=== PATIENT | female | born 1995 | race Caucasian/White ===

== ENCOUNTER 2024-06-15 18:20 | Emergency (ER) | payer OTHER, SELFPAY ==
[2024-06-15 18:33] VITALS: BP 130/90; PULSE 93; RESP 16; TEMP 36.3; O2SAT 100
--- NOTE | 2024-06-15 19:00 | ED.GENADULT ---
HPI - General Adult General Chief complaint: Dental/Oral Stated complaint: Jaw Injury Time Seen by Provider: 06/15/24 18:46 Source: patient and RN notes reviewed Mode of arrival: ambulatory Limitations: no limitations History of Present Illness HPI narrative: Patient presents today complaining of pain to her bilateral TM joints. She was holding her dog at the vet's office a few hours prior to arrival, when the dog bucked, striking her under the chin with its body, causing immediate pain to her jaw. States pain is worse when she tries to close her jaw, less pain when speaking or opening the jaw. She currently rates her pain 6/10 and has tried no medication for pain prior to arrival. Teeth and tongue are uninjured. She wants to make sure her jaw is not broken. Related Data Allergies Allergy/AdvReac Type Severity Reaction Status Date / Time Sulfa (Sulfonamide Allergy Mild Rash Verified 06/15/24 19:05 Antibiotics) Review of Systems Review of Systems: CONSTITUTIONAL: Denies body aches, fever, chills, or sweats. EYES: Denies visual changes, redness, or discharge. ENT: Denies rhinorrhea, congestion, sore throat, or otalgia.+ jaw pain CARDIOVASCULAR: Denies chest pain, palpitations, or edema. RESPIRATORY: Denies cough or dyspnea. GASTROINTESTINAL: Denies abdominal pain, nausea, vomiting, or diarrhea. GENITOURINARY: Denies dysuria or hematuria. SKIN: Denies rash, itching, or wounds. MUSCULOSKELETAL: Denies back pain, joint pain, or myalgia. NEUROLOGIC: Denies headache, numbness, tingling, or weakness. PSYCH: Denies depression or anxiety. PMFSH Family History Family History Mother Asthma Social History Social History Smoking status: Never smoker Alcohol intake: never Comments At time of signature, I have reviewed and agree with nursing past medical, surgical, social and family history unless otherwise noted. Please see nursing chart for further information. There is no relevant family history pertinent to the presenting complaint Exam Narrative: GENERAL: Well-appearing, well-nourished, tearful HEAD: Normocephalic, atraumatic. EYES: EOMI. PERRL. No redness or drainage. Conjunctivae normal. ENT: Mucous membranes pink and moist. Nares clear. No rhinorrhea. No swelling, erythema, or ecchymosis to the face. Point tenderness to the bilateral temporomandibular joints, R>L. Mild discomfort with opening of the mouth. Tongue, teeth, lips unaffected. Pain to the TM joints with closing of the mouth and clenching. Patient has no other tenderness of the maxilla or mandible. Patient speaks smoothly without difficulty. NECK: Normal AROM. CHEST: No respiratory distress. EXTREMITIES: Normal range of motion. No edema. SKIN: Warm, dry, no rash. Capillary refill normal. Normal skin turgor. NEURO: No focal deficits. Alert and oriented x3. Gait steady. PSYCH: Normal affect. No signs of depression or anxiety. Course Course Level of Care: Express Care Visit Vital Signs Vital signs: Vital Signs Temperature 97.4 F L 06/15/24 18:33 Pulse Rate 93 06/15/24 18:33 Respiratory Rate 16 06/15/24 18:33 Blood Pressure 130/90 06/15/24 18:33 Pulse Oximetry 100 06/15/24 18:33 Temperature 97.4 F L 06/15/24 18:33 Pulse Rate 93 06/15/24 18:33 Respiratory Rate 16 06/15/24 18:33 Blood Pressure 130/90 06/15/24 18:33 Pulse Oximetry 100 06/15/24 18:33 Reviewed Medical Decision Making MDM Narrative Medical decision making narrative: At this time, I do not feel that patient's jaw is fractured given her exam findings and history. She has been given IM injections dexamethasone and ketorolac for symptom control. Prescription for Flexeril sent pharmacy. States she will seek further evaluation tomorrow in the ER if symptoms have not improved with these interventions. Anti
[2024-06-15] MEDS: KETOROLAC (*BKC) 60 MG/2 ML VIAL IM (19:06)
[2024-06-15] MEDS: dexAMETHasone SOD PHOS INJ 10 MG/ML 1 ML VIAL IM (19:07)
== END 2024-06-15 19:25 | disposition home or self-care (01) ==
PROVIDERS: Emergency Provider Nurse Practitioner
DX: S09.11XA Strain of muscle and tendon of head, initial encounter (principal); W54.8XXA Other contact with dog, initial encounter
CPT/HCPCS: 96372; 99214; G0463; J1100; J1885

== ENCOUNTER 2025-05-25 14:34 | Emergency (ER) | payer OTHER, SELFPAY ==
--- NOTE | ~2025-05-25 | XR_ITS ---
XR finger 1st LT min 2V 05/25/2025 14:59 INDICATION: Left first finger pain PROCEDURE: 3 views left first finger COMPARISON: No prior studies for comparison. FINDINGS: Ossific fragments present at the ventral base first distal phalanx, consistent with avulsion fracture. The soft tissues appear within normal limits. No foreign bodies are identified. IMPRESSION: 1: Avulsion fracture ventral base left first distal phalanx. Reviewed, dictated and finalized at location O.
[2025-05-25 14:42] VITALS: BP 152/100; PULSE 94; RESP 20; TEMP 36.6; O2SAT 100
--- OUTSIDE RECORDS SUMMARY | 2025-05-25 14:44 | XMS_ITS | Clinical Summary ---
Author Organization [facility] A Address [address] [place] [address] Care Team Providers Care Transportation Manager Name Role Phone Fabricio Morrison MD Primary Care Provider + Allergies Active Allergy Reactions Criticality Noted Date Comments Sulfamethoxazole Hives,Rash,Swelling Medium 12/01/2022 Medications ferrous sulfate (IRON) 325 mg (65 mg of elemental iron) tablet take 1 tablet by ORAL route 3 times every day after meals 90 0 6 Active Additional Information Patient not taking.Reported on 11/07/2023 iron 18 mg tablet 18 mg. 0 0 5 Active Additional Information Patient not taking.Reported on 05/08/2023 inulin-sorbitol (FIBER) 2 gram tablet,chewable 0 0 5 Active Additional Information Patient not taking.Reported on 05/08/2023 calcium carbonate (CALCIUM 500) 1,250 MG (500 mg of elemental calcium) tablet 0 0 5 Active Additional Information Patient not taking.Reported on 11/07/2023 albuterol (PROAIR RESPICLICK) 90 mcg/actuation inhaler Inhale 2 puffs 4 (four) times a day 1 each 4 Active famotidine (PEPCID) 20 mg tablet Take 1 tablet (20 mg total) by mouth 2 (two) times a day Active Active Problems Problem Noted Date Diagnosed Date Pain in wrist 08/06/2015 Overview (01/05/2017): Wrist pain Acid reflux 08/06/2015 Overview (01/05/2017): Acid reflux Anemia 08/06/2015 Overview (01/05/2017): Anemia Asthma 08/06/2015 Overview (01/05/2017): Asthma Vasovagal attack 08/06/2015 Overview (01/05/2017): Vasovagal attack Sodium deficiency 08/06/2015 Overview (01/05/2017): Sodium deficiency GERD (gastroesophageal reflux disease) 1 Orthostatic hypotension 12/04/2010 Immunizations Immunization Administration Dates Next Due DTaP, Unspecified 01/22/2002, 8,02/25/1997,12/17,1996 Hep A, Adult 04/18/2019 Hep B, Unspecified 03/08/1997,1996, 996 HiB 02/25/1997,1996,1996 IPV 01/22/2002 Influenza Nasal, Unspecified 08/12/2009 Influenza, Trivalent, Cell Culture-based MDCK, Preservative Free, Antibiotic Free, Intramuscular 09/25/2024 MMR 01/22/2002,10/20/1997 Meningococcal ACWY, Unspecified 05/27/2008 Meningococcal MCV4P (Menactra) 07/23/2017 OPV 02/25/1997,1996,1996 Pneumococcal Conjugate Pcv20 09/25/2024 Tdap 08/08/2017,05/29/2007 Varicella 05/29/2007,10/20/1997 Surgical History Surgery Date Site/Laterality Comments ADENOIDECTOMY Adenoidectomy Medical History Medical History Date Comments Hx Other Medical gastric reflux; Comments: ADAMARIS 03/20/2014 - Hx Other Medical low sodium; Com ments: ADAMARIS 03/20/2014 - Hx Other Medical Adenoidectomy 2 006-07 ?; Comments: ANNIE 08/06/2015 - Iron deficiency anemia Anemia ir on deficiency; Comments: BARBIE 09/22/2016 - Family History Medical History Relation Name Comments Asthma Brother Asthma; Asthma Mother Asthma; Cancer Other 1 Family history of Cancer, unknown; Arthritis Other 2 Family history of Arthritis; Diabetes Other 3 Family history of Diabetes mellitus; Other Other 4 Family history of Blood clots, legs; Other Other 5 Family history of hypertension, diabetes and cancer.; Relation Name Status Comments Brother Mother Other 1 Other 2 Other 3 Other 4 Other 5 Social History Tobacco Use Types Packs/Day Years Used Date Smoking Tobacco: Never Tobacco Cessation:Counseling Given: Not Answered Alcohol Use Standard Drinks/Week Comments No 0 (1 standard drink = 0.6 oz pur e alcohol) Comments No Sex and Gender Information Value Date Recorded Sex Assigned at Not on file Legal Sex Female 11:29 PM JEWELRY MAKING INSTRUCTOR Gender Identity Female 08/09/2020 2:06 PM JEWELRY MAKING INSTRUCTOR Sexual Orientation Not on file Occupation Industry Job Start Date Job End Date Not on file Not on file Not on file Not on file Obstetrics History Para Term AB IAB SAB Ectopic Multiple Livin g Live Births 0 0 0 0 0 0 0 0 0 0 0 Last Filed Vital Signs Vital Sign Reading Time Taken Comments Blood Pressure 138/88 10/20/2024 2:30 PM JEWELRY MAKING INSTRUCTOR Pulse 96 11/07/2023 11:28 AM JEWELRY MAKING INSTRUCTOR Temperature 36.6 C (97.8 F) 11/07/2023 11:28 AM JEWELRY MAKING INSTRUCTOR Respiratory Rate 16 11/07/2023 11:28 AM JEWELRY MAKING INSTRUCTOR Oxygen Saturation 99% 11/07/2023 11:28 AM JEWELRY MAKING INSTRUCTOR Inhaled Oxygen Concentration - - Weight 117.5 kg (259 lb) 10/20/2024 2:30 PM JEWELRY MAKING INSTRUCTOR Height 165.1 cm (5' 5) 10/20/2024 2:30 PM JEWELRY MAKING INSTRUCTOR Body Mass Index 43.1 10/20/2024 2:30 PM JEWELRY MAKING INSTRUCTOR Plan of Treatment Health Maintenance Due Date Last Done Comments Depression Screening 1995 Hepatitis C Screening 1995 HPV Vaccines (1 - 3-dose SCD M series) 2023 Influenza Vaccine (#1) 2025 09/25/2024, 2008 Cervical Cancer Screening 10/20/2025 10/20/2024 Regular Well Visit/Exam 18-64 10/20/2025 10/20/2024 DTaP/Tdap/Td Vaccine (8 - Td or Tdap) 08/08/2027 08/08/2017, 05/29/2007, 01/22/2002, Additional history exists Hepatitis B Screening Completed 03/08/1997 , 1996, 1996 Varicella Vaccines Completed 05/29/2007, 10/20/1997 Covid-19 Vaccine Completed 09/25/2024, 08/2022, 09/26/2021, Additional history exists Pneumococcal vaccine <65 Completed 09/25/2024 Procedures Procedure Name Priority Date/Time Associated Diagnosis Comments PAP WITH REFLEX TO HIGH RISK HPV Routine 10/20/2024 8:40 AM JEWELRY MAKING INSTRUCTOR Screening for malignant neoplasm of cervix from Last 3 Months or Most Recently Relevant to Health Maintenance Results * Pap with reflex to High Risk HPV and Genotyping (Cytology Component) (10/20/2024 8:40 AM JEWELRY MAKING INSTRUCTOR) Thin prep (Pap test) 10/20/2024 8:40 AM JEWELRY MAKING INSTRUCTOR 10/21/2024 8:40 AM JEWELRY MAKING INSTRUCTOR Narrative PATHOLOGY CH - 10/22/2024 11:30 AM JEWELRY MAKING INSTRUCTOR [facility] Department of Pathology [address] [place] [address] Final Report Note to Patients: This report may contain a detailed description of human tissue sent by a health care provider to the laboratory for pathologic evaluation. The content of this report is essential for diagnosis and may provide important critical findings. This information may be unfamiliar to patients to review without a medical professional present. It is advised that the patient review this report in the presence of a health care provider who can answer questions and explain the details. Patient Name: DES LYNCH Address: [address] [place] [address]- Gender: F : 1995 (Age: 29) Service: Location: N : [id number] [place] [facility] #: [id number] Patient Type: SPECIMEN Taken: 10/20/2024 Received: 10/21/2024 Accessioned:: 10/21/2024 Reported: 10/22/2024 Physician(s): Cammie Matos D.O. Diagnosis: SOURCE OF SPECIMEN Imaged Thinprep Pap Test w/ Reflex HPV - It Application Administrator Cytologic Material: STATEMENT OF ADEQUACY - Specimen satisfactory for interpretation; endocervical/transformation zone component absent or insufficient GENERAL CATEGORIZATION: - Negative for intraepithelial lesion or malignancy GREER Pickens(ASCP) Report Electronically Reviewed and Signed Out By GREER Pickens(ASCP) 10/22/2024 11:30:13Specimen(s) Received: A: Imaged Thinprep Pap Test w/ Reflex HPV - It Application Administrator Cytologic Material Clinical History: Last Menstrual Period: 10/02/24 The Pap test is a screening test used to aid in the detection of cervical cancer and its precursors. It should not be the sole means by which malignant and premalignant lesions are diagnosed. Both false negative and false positive results may occur. It also has poor sensitivity for the detection of endometrial lesions and should not be used to evaluate suspected endometrial abnormalities. For these reasons it is most important to obtain Pap tests at regular intervals. The performance characteristics of some immunohistochemical stains, fluorescence in-situ hybridization tests and immunophenotyping by flow cytometry cited in this report (if any) were determined by the Surgical Pathology Department at [facility] as part of an ongoing software quality test engineer program and in compliance with federally mandated regulations drawn from the Clinical Laboratory Improvement Act of 1988 (CLIA '88). Some of these tests rely on the use of analyte specific reagents and are subject to specific labeling requirements by the US Food and Drug Administration. Such diagnostic tests may only be performed in a facility that is certified by the Department of Health and Human Services as a high complexity laboratory under CLIA '88. The FDA has determined that such clearance or approval is not necessary. This test is used for clinical purposes. It should not be regarded as investigational or for research. Nevertheless, federal rules concerning the medical use of analyte specific reagents require that the following disclaimer be attached to the report: This test was developed and its performance characteristics determined by the Surgical Pathology Department [facility]. It has not been cleared or approved by the U. S. Food and Drug Administration. Falguni Horvath DO LAB CYTOLOGY ORDERABLES Final Result PATHOLOGY [address] [place] [address] from Last 3 Months or Most Recently Relevant to Health Maintenance Insurance [facility] Care Teams Transportation Manager Relationship Specialty Start Date End Date Fabricio Morrison MD [address] [place] [address] PCP - General 09/21/16
--- OUTSIDE RECORDS SUMMARY | 2025-05-25 14:44 | XMS_ITS | Clinical Summary ---
Author Organization [facility] Address [address] [place] [address] Phone Care Team Providers Care Mail Processing Associate Name Role Phone Dalia Bartholomew MD Primary Care Provider [phone] Medications fludrocortisone (FLORINEF) 0.1 mg Oral tablet Take 1 Tab by mouth daily. Take 2 tabs daily x 5 days, then take 1 tab daily. 35 Tab 0 01/04/2011 Active Active Problems Problem Noted Date Diagnosed Date Vasovagal syncope 12/04/2010 Orthostatic hypotension 12/04/2010 GERD (gastroesophageal reflux disease) 1 Social History Tobacco Use Types Packs/Day Years Used Date Smoking Tobacco: Never Assessed Comments Unknown Sex and Gender Information Value Date Recorded Sex Assigned at Not on file Legal Sex Female 5:59 AM PAGE MAKEUP SYSTEM OPERATOR Gender Identity Not on file Sexual Orientation Not on file Last Filed Vital Signs Vital Sign Reading Time Taken Comments Blood Pressure 120/70 12/01/2010 10:27 AM PAGE MAKEUP SYSTEM OPERATOR Pulse 76 12/01/2010 10:27 AM PAGE MAKEUP SYSTEM OPERATOR Temperature - - Respiratory Rate 18 12/01/2010 10:27 AM PAGE MAKEUP SYSTEM OPERATOR Oxygen Saturation - - Inhaled Oxygen Concentration - - Weight 91.2 kg (201 lb) 12/01/2010 10:27 AM PAGE MAKEUP SYSTEM OPERATOR Height 162.6 cm (5' 4) 12/01/2010 10:27 AM PAGE MAKEUP SYSTEM OPERATOR Body Mass Index 34.5 12/01/2010 10:27 AM PAGE MAKEUP SYSTEM OPERATOR Plan of Treatment Health Maintenance Due Date Last Done Comments DTAP/TDAP/TD VACCINES (1 - Tdap) 2015 HEPATITIS B VACCINES (1 of 3 - 19+ 3-dose series) 08/01 CERVICAL CANCER SCREENING 2017 HPV/Cotest (21-29) 2017 PAP SMEAR 2017 HPV VACCINES (1 - 3-dose SCDM series) 2023 INFLUENZA VACCINE (#1) 2025 Insurance [facility] [employer] PPO [id number] Care Teams Mail Processing Associate Relationship Specialty Start Date End Date Dalia Bartholomew MD PCP - General Pediatrics 12/01/10
--- NOTE | 2025-05-25 15:03 | ED.UPPEXIN ---
HPI - Extremity Injury (Upper) General Chief Complaint: Extremity Injury, Upper Stated Complaint: Left Thumb Injury Time Seen by Provider: 05/25/25 15:04 Source: patient Mode of arrival: ambulatory Limitations: no limitations History of Present Illness HPI narrative: 29-year-old female presented for complaint of left thumb pain following injury today. She states while in the shower she slipped and struck the left hand on the bathtub. Pain is worse with any movement. Unable to tolerate finger cascade. Has applied ice. Related Data Home Medications ?Medication ?Instructions ?Recorded ?Confirmed ?Last Taken ?Type No Home Medications 05/25/25 Unknown History Allergies Allergy/AdvReac Type Severity Reaction Status Date / Time Sulfa (Sulfonamide Allergy Mild Rash Verified 05/25/25 14:45 Antibiotics) Review of Systems Review of Systems: CONSTITUTIONAL: Denies body aches, fever, chills EYES: Denies visual changes ENT: Denies rhinorrhea, congestion CARDIOVASCULAR: Denies chest pain, palpitations, or edema. RESPIRATORY: Denies cough or dyspnea. SKIN: Denies rash, itching, or wounds. MUSCULOSKELETAL: reports left thumb pain NEUROLOGIC: Denies headache, numbness, tingling, or weakness. All systems reviewed & are unremarkable except as noted in HPI and below PMFSH Family History Family History Mother Asthma Social History Social History Smoking status: Never smoker Alcohol intake: never Comments At time of signature, I have reviewed and agree with nursing past medical, surgical, social and family history unless otherwise noted. Please see nursing chart for further information. There is no relevant family history pertinent to the presenting complaint Exam Narrative: GENERAL: Well-appearing CHEST: Speaks in full sentences. No respiratory distress. HEART: Regular rate and rhythm. Normal and equal peripheral pulses. EXTREMITIES: Left hand thenar eminence with mild swelling, tender with palpation. Decreased ROM with finger cascade, stating she cannot tolerate moving the thumb due to pain. Nontender IP joints. No open wounds, obvious deformity; alignment normal, pulse palpable and equal bilaterally, skin warm, dry, pink. Capillary refill less than 3 seconds. SKIN: Warm, dry, no rash. NEURO: Alert and oriented x3. PSYCH: Normal mood and affect Course Course Emergency Course: Patient is aware of diagnosis, understands and agrees to treatment plan. Anticipatory guidance given. Patient agrees to follow-up as directed and is aware of reasons to seek care at the emergency department. Portions of this record may have been created with voice recognition software Level of Care: Express Care Visit Vital Signs Vital signs: Vital Signs Temperature 97.8 F 05/25/25 14:42 Pulse Rate 94 05/25/25 14:42 Respiratory Rate 20 05/25/25 14:42 Blood Pressure 152/100 H 05/25/25 14:42 Pulse Oximetry 100 05/25/25 14:42 Oxygen Delivery Room Air 05/25/25 14:42 Temperature 97.8 F 05/25/25 14:42 Pulse Rate 94 05/25/25 14:42 Respiratory Rate 20 05/25/25 14:42 Blood Pressure 152/100 H 05/25/25 14:42 Pulse Oximetry 100 05/25/25 14:42 Oxygen Delivery Room Air 05/25/25 14:42 Reviewed MDM - Extremity Injury (Upper) MDM Narrative Medical decision making narrative: Discussed physical exam findings and xray; pt does not have pain at the distal phalanx as reported. Thumb spica advised. GUERDA applied. Advised supportive measures and signs/symptoms to go to the ER. Pt is appropriate for outpt treatment and f/u. Differential Diagnosis Differential diagnosis: Likely sprain and strain of wrist, fracture of wrist, finger sprain, dislocation of finger and fracture of hand Imaging Data Radiologist's impression: Patient: Ashley Lynch : 1995 MR#: [id number] Age: 29 Acct:[id number] Loc: [facility] ADM Date: 05/25/25Attending Dr: XR finger 1st LT min 2V 05/25/2025 14:59 INDICATION: Left first finger pain PROCEDURE: 3 views left first finger COMPARISON: No prior studies for comparison. FINDINGS: Ossific fragments present at the ventral base first distal phalanx, consistent with avulsion fracture. The soft tissues appear within normal limits. No foreign bodies are identified. IMPRESSION: 1: Avulsion fracture ventral base left first distal phalanx. Discharge Plan Discharge Clinical Impression: Left thumb sprain Patient Disposition: Home Condition: Stable Instructions: Finger Sprain (ED) Additional Instructions: Rest and elevate the left hand; activity as tolerated. avoid lifting, pushing, pulling etc. until symptoms are fully resolved Apply ice 15-20 minute intervals several times a day Keep it wrapped with GUERDA or use a thumb spica splint Motrin 800mg every 8 hours, alternate with Tylenol 1000mg every 8 hours as needed Follow up with your primary care provider as needed go to the ER for worsening symptoms or concerns Patient Language: Palestinian Prescriptions: No Action No Home Medications Follow-up/Referrals: PHYSICIAN,GAUGE OPERATOR [Primary Care Provider, Internal Medicine] Time of Disposition: 15:23
== END 2025-05-25 15:26 | disposition home or self-care (01) ==
PROVIDERS: Emergency Provider Nurse Practitioner Family
DX: S63.602A Unspecified sprain of left thumb, initial encounter (principal); W22.09XA Striking against other stationary object, initial encounter
CPT/HCPCS: 73140; 99213; G0463